=== PATIENT | female | born 2000 | race Caucasian/White ===

== ENCOUNTER 2018-08-24 14:18 | Emergency (ER) | payer OTHER ==
[2018-08-24] MEDS ORDERED: ONDANSETRON DISINTEGRATING 4 MG TAB PO ONE (14:42)
[2018-08-24] MEDS ORDERED: NS 1,000 ML IV ONE (15:03)
[2018-08-24] MEDS ORDERED: METOCLOPRAMIDE 10 MG/2 ML VIAL IVP ONE (15:03)
[2018-08-24] MEDS ORDERED: HYDROmorphONE/DILAUDID 2 MG/ML INJ IVP ONE (15:03)
--- NOTE | 2018-08-24 15:06 | EDPHY ---
H & P Stated Complaint: abd pain n/v states did drink etoh last night Time Seen by Provider: 08/24/18 14:58 HPI/ROS: CHIEF COMPLAINT: Abdominal pain, nausea vomiting HISTORY OF PRESENT ILLNESS: The patient is a 18-year-old female who comes to the emergency department complaining of abdominal pain, nausea and vomiting. She has vomited several times this morning. She complains of diffuse crampy pain. No diarrhea. No fever. She denies risk of . No vaginal bleeding or discharge. No urinary symptoms. She states that this happened to her once a year ago at home in [facility]. She states that she had negative testing and was discharged at the time but had to return to the ER several times for a return of vomiting symptoms when she got home. Eventually she was admitted and had an upper endoscopy and HIDA scan that were both negative. She states that they never did find the cause. She occasionally smokes marijuana but not heavily. She was drinking yesterday and states that that is similar to her previous episode. She states that she has learned during her previous episode that Zofran does not work for her. Severity: Moderate Modifying factors: None REVIEW OF SYSTEMS: Constitutional: denies: chills, fever, recent illness, recent injury EENTM: denies: blurred vision, double vision, nose congestion Respiratory: denies: cough, shortness of breath Cardiac: denies: chest pain, irregular heart rate, lightheadedness, palpitations Gastrointestinal/Abdominal: See HPI Genitourinary: denies: dysuria, frequency, hematuria, pain Musculoskeletal: denies: joint pain, muscle pain Skin: denies: lesions, rash, jaundice, bruising Neurological: denies: headache, numbness, paresthesia, tingling, dizziness, weakness Hematologic/Lymphatic: denies: blood clots, easy bleeding, easy bruising Immunologic/allergic: denies: HIV/AIDS, transplant 10 systems reviewed and negative except as noted EXAM: GENERAL: Uncomfortable, moderate distress HEAD: Atraumatic, normocephalic. EYES: Pupils equal round and reactive to light, extraocular movements intact, sclera anicteric, conjunctiva are normal. ENT: TMs normal, nares patent, oropharynx clear without exudates. Moist mucous membranes. NECK: Normal range of motion, supple without lymphadenopathy or JVD. LUNGS: Breath sounds clear to auscultation bilaterally and equal. No wheezes rales or rhonchi. HEART: Regular rate and rhythm without murmurs, rubs or gallops. ABDOMEN: Soft, nontender, normoactive bowel sounds. No guarding, no rebound. No masses appreciated. BACK: No CVA tenderness, no spinal tenderness, step-offs or deformities EXTREMITIES: Normal range of motion, no pitting or edema. No clubbing or cyanosis. NEUROLOGICAL: Cranial nerves II through XII grossly intact. Normal speech, normal gait. 5/5 strength, normal movement in all extremities, normal sensation , normal reflexes PSYCH: Normal mood, normal affect. SKIN: Warm, dry, normal turgor, no visible rashes or lesions. Source: Patient Exam Limitations: No limitations - Personal History LMP (Females 10-55): 15-21 Days Ago Current Tetanus Diphtheria and Acellular Pertussis (TDAP): Yes - Medical/Surgical History Hx Asthma: No Hx Chronic Respiratory Disease: No Hx Diabetes: No Hx Cardiac Disease: No Hx Renal Disease: No Hx Cirrhosis: No Hx Alcoholism: No Hx HIV/AIDS: No Hx Splenectomy or Spleen Trauma: No Other PMH: osteosarcoma - Family History Significant Family History: No pertinent family hx - Social History Smoking Status: Never smoked Alcohol Use: Occasionally Drug Use: Marijuana Constitutional: Initial Vital Signs Temperature (C) 36.7 C 08/24/18 14:33 Heart Rate 94 08/24/18 14:33 Respiratory Rate 20 08/24/18 14:33 Blood Pressure 125/83 H 08/24/18 14:33 O2 Sat (%) 100 08/24/18 14:33 O2 Delivery Mode Room Air Allergies/Adverse Reactions: No Known Allergies Allergy (Unverified 08/24/18 14:33) Home Medications: Medication Instructions Recorded Adderall 10 MG (*) 08/24/18 Metoclopramide [Reglan 10 mg tab 10 mg PO BID PRN 7 Days #10 tab 08/24/18 (RX)] Medical Decision Making ED Course/Re-evaluation: 4:00 p.m. The patient is sleeping comfortably. No longer vomiting. Abdominal exam is benign. 4:40 p.m. the patient's abdominal exam remains benign. She states that she is feeling much better and is eager to go home. She has not given us a urine sample. She declines doing so. She states that she has not had any urine symptoms. I will give her prescription for Reglan. We discussed indications for returning. Differential Diagnosis: Partial list of the Differential diagnosis considered include but were not limited to; gastritis, food poisoning, gastroparesis, alcohol use and although unlikely based on the history and physical exam, I also considered ulcer, appendicitis, kidney stone, appendicitis, ovarian cyst, . I discussed these differential diagnoses and the plan with the patient as well as the usual and expected course. The patient understands that the diagnosis is provisional and that in medicine we are not always correct and that further workup is often warranted. Usual and customary warnings were given. All of the patient's questions were answered. The patient was instructed to return to the emergency department should the symptoms at all worsen or return, otherwise to followup with the physician as we discussed. - Data Points Laboratory Results: Laboratory Results 08/24/18 15:11 08/24/18 15:11 08/24/18 08/24/18 08/24/18 15:11 15:11 15:11 WBC 12.34 10^3/uL H 10^3/uL (3.80-9.50) RBC 4.59 10^6/uL 10^6/uL (4.18-5.33) Hgb 15.6 g/dL g/dL (12.6-16.3) Hct 42.6 % % (38.0-47.0) MCV 92.8 fL fL (81.5-99.8) MCH 34.0 pg pg (27.9-34.1) MCHC 36.6 g/dL g/dL (32.4-36.7) RDW 12.5 % % (11.5-15.2) Plt Count 187 10^3/uL 10^3/uL (150-400) MPV 9.6 fL fL (8.7-11.7) Neut % (Auto) 87.8 % H % (39.3-74.2) Lymph % (Auto) 4.3 % L % (15.0-45.0) Rowan % (Auto) 7.1 % % (4.5-13.0) Eos % (Auto) 0.0 % L % (0.6-7.6) Baso % (Auto) 0.4 % % (0.3-1.7) Nucleat RBC Rel Count 0.0 % % (0.0-0.2) Absolute Neuts (auto) 10.83 10^3/uL H 10^3/uL (1.70-6.50) Absolute Lymphs (auto) 0.53 10^3/uL L 10^3/uL (1.00-3.00) Absolute Monos (auto) 0.88 10^3/uL H 10^3/uL (0.30-0.80) Absolute Eos (auto) 0.00 10^3/uL L 10^3/uL (0.03-0.40) Absolute Basos (auto) 0.05 10^3/uL 10^3/uL (0.02-0.10) Absolute Nucleated RBC 0.00 10^3/uL 10^3/uL (0-0.01) Immature Gran % 0.4 % % (0.0-1.1) Immature Gran # 0.05 10^3/uL 10^3/uL (0.00-0.10) RBC/WBC/PLT Morphology TNP Platelet Estimate TNP Sodium 139 mEq/L mEq/L (135-145) Potassium 3.7 mEq/L mEq/L (3.3-5.0) Chloride 102 mEq/L mEq/L (97-110) Carbon Dioxide 18 mEq/l L mEq/l (22-31) Anion Gap 19 mEq/L H mEq/L (6-14) BUN 11 mg/dL mg/dL (7-23) Creatinine 0.7 mg/dL mg/dL (0.6-1.0) Estimated GFR > 60 Glucose 96 mg/dL mg/dL (70-100) Calcium 10.2 mg/dL mg/dL (8.5-10.4) Total Bilirubin 0.8 mg/dL mg/dL (0.1-1.4) Conjugated Bilirubin 0.2 mg/dL mg/dL (0.0-0.5) Unconjugated Bilirubin 0.6 mg/dL mg/dL (0.0-1.1) AST 43 IU/L IU/L (14-46) ALT 43 IU/L IU/L (9-52) Alkaline Phosphatase 76 IU/L IU/L (38-126) Total Protein 8.0 g/dL g/dL (6.3-8.2) Albumin 4.8 g/dL g/dL (3.5-5.0) Lipase 66 IU/L IU/L (23-300) Beta HCG, Qual NEGATIVE Medications Given: Discontinued Medications Hydromorphone HCl (Dilaudid) 0.5 mg IVP EDNOW ONE Stop: 08/24/18 15:04 Last Admin: 08/24/18 15:33 Dose: 0.5 mg Sodium Chloride (Ns) 1,000 mls @ 0 mls/hr IV EDNOW ONE; Wide Open PRN Reason: Protocol Stop: 08/24/18 15:04 Last Admin: 08/24/18 15:26 Dose: 1,000 mls Metoclopramide HCl (Reglan Injection) 10 mg IVP EDNOW ONE Stop: 08/24/18 15:04 Last Admin: 08/24/18 15:26 Dose: 10 mg Metoclopramide HCl (Reglan) 10 mg PO EDNOW ONE Stop: 08/24/18 16:43 Last Admin: 08/24/18 16:57 Dose: 10 mg Ondansetron HCl (Zofran Odt) 4 mg PO EDNOW ONE Stop: 08/24/18 14:43 Last Admin: 08/24/18 14:44 Dose: 4 mg Departure - Departure Disposition: Home, Routine, Self-Care Clinical Impression: Vomiting Qualifiers: Vomiting type: unspecified Vomiting Intractability: unspecified Nausea presence : unspecified Qualified Code(s): R11.10 - Vomiting, unspecified Condition: Fair Instructions: Metoclopramide (By mouth), Acute Nausea and Vomiting (ED) Referrals: NONE *PRIMARY CARE P,. [Primary Care Provider] - As per Instructions Amanda Crocker MD [[facility] Primary Care Provider] - 2-3 days, if not improved Prescriptions: Metoclopramide [Reglan 10 mg tab (RX)] 10 mg PO BID PRN 7 Days #10 tab PRN Reason: *Nausea & Vomiting
[2018-08-24 15:27] LABS: PLATELET COUNT 187 10^3/uL (150-400)
[2018-08-24] MEDS ORDERED: METOCLOPRAMIDE 10 MG TAB PO ONE (16:42)
[2018-08-24 16:53] VITALS: BP 92/61
== END 2018-08-24 17:11 | disposition home or self-care (01) ==
DX: R11.10 Vomiting, unspecified (principal); R10.9 Unspecified abdominal pain; E86.9 Volume depletion, unspecified
CPT/HCPCS: 96374; J1170; J2765

== ENCOUNTER 2018-08-25 08:23 | Emergency (ER) | payer OTHER ==
[2018-08-25] MEDS ORDERED: PROMETHAZINE HCL 25 MG/ML INJ IVP ONE (08:40)
[2018-08-25] MEDS ORDERED: NS 1,000 ML IV ONE ×2 (08:40)
[2018-08-25] MEDS ORDERED: PANTOPRAZOLE SODIUM 40 MG VIAL IVP ONE (09:03)
[2018-08-25] MEDS ORDERED: DICYCLOMINE 10 MG CAP PO ONE (09:08)
[2018-08-25] MEDS ORDERED: fentaNYL 100 MCG/2 ML INJ IVP ONE (09:08)
--- NOTE | 2018-08-25 09:12 | EDPHY ---
General Time Seen by Provider: 08/25/18 09:09 Narrative: CHIEF COMPLAINT: Abdominal pain, nausea vomiting HISTORY OF PRESENT ILLNESS: Patient returns to emergency department by private vehicle with complaints of abdominal pain, nausea vomiting. Symptoms started 2 days ago. She was evaluated here for this. She was treated with IV pain medication and nausea medication. Discharged home with Reglan. She was feeling well until last night around midnight. She states she tried eat some soup at that time in her symptoms return. She describes generalized abdominal pain. It is constant duration. Moderate to severe. Worse with palpation, movement or intake by mouth. She reports asw-[id number]-count vomiting episodes. No bloody emesis. No constipation diarrhea. No fever. No chest pain or shortness of breath. No alleviating factors. She has tried the Reglan that she was prescribed without improvement. No other associated complaints or modifying factors REVIEW OF SYSTEMS: 10 systems were reviewed and negative with the exception of the elements mentioned in the history of present illness. PCP: None. SPECIALISTS: Pending outpatient referral PAST MEDICAL HISTORY: Osteosarcoma remotely PAST SURGICAL HISTORY: Left tibia SOCIAL HISTORY: Nonsmoker. Occasional alcohol use. Denies marijuana use. [employer] student. Originally from [place] FAMILY HISTORY: Noncontributory EXAMINATION: General Appearance: Alert, no distress. Nontoxic. Conversing in full sentences. Head: normocephalic, atraumatic Eyes: Pupils equal and round, no conjunctival pallor or injection ENT, Mouth: Mucous membranes slightly dry. Airway widely patent Neck: Normal inspection, supple, non-tender Respiratory: Lungs are clear to auscultation Cardiovascular: Regular rate and rhythm. No murmur. Gastrointestinal: Abdomen is soft and nondistended. Minimal tenderness in the epigastrium and generalized. Bowel sounds present all 4 quadrants. No palpable masses. No rigidity. No guarding. No CVA tenderness. No tympany. Neurological: A&O, nonfocal, normal gait Skin: Warm and dry, no rash. Multiple tattoos. No petechiae or purpura Extremities: Nontender, no pedal edema Psychiatric: Mood and affect normal DIFFERENTIAL DIAGNOSES: Including but not limited to gastritis, peptic ulcer disease, cyclical vomiting , cholecystitis, cholelithiasis, colitis, pancreatitis, appendicitis MDM: 9:10 a.m. Abdominal pain with nausea vomiting over the past 24-48 hours. Her abdominal exam is benign. She does have IV established with 2 L infusing. I will review her visit from yesterday. Her vital signs are within normal limits. No previous abdominal surgeries. No pelvic complaints. 10:10 a.m. Laboratory studies are unremarkable. Patient re-evaluated. She is feeling significantly better p.o. Still nauseated but no abdominal pain. I have ordered a GI cocktail and we will try ice chips. 10:45 a.m. Patient re-evaluated. She is feeling much better but is requesting IV Reglan. She has tolerated this past. I do feel it is reasonable. After this we will p.o. Trial her 11:10 a.m. Patient re-evaluated. She has tolerated p.o. Intake without any vomiting. Nausea is decreased. She has no abdominal pain. I did offer admission hospital she has declined. Vital signs within normal limits. We discussed rest , clear liquids, increase fluid intake, nausea medications. We discussed ED precautions for any return of her pain, intolerance of liquids, worsening nausea , fever, chest pain or shortness of breath. I have answered all her questions. She is comfortable going home, and I do feel she is stable for discharge home. SUPERVISION: Patient was independently examined, but I discussed the case with my secondary supervising physician Dr. Alejandra CONSULTATION: None - History Smoking Status: Never smoked - Objective Vital Signs: Initial Vital Signs Temperature (C) 97.9 F 08/25/18 08:28 Heart Rate 90 08/25/18 08:28 Respiratory Rate 18 08/25/18 08:28 Blood Pressure 119/89 H 08/25/18 08:28 O2 Sat (%) 96 08/25/18 08:28 O2 Delivery Mode Room Air Allergies/Adverse Reactions: No Known Allergies Allergy (Unverified 08/24/18 14:33) Home Medications: Medication Instructions Recorded Adderall 10 MG (*) 08/24/18 Metoclopramide [Reglan 10 mg tab 10 mg PO BID PRN 7 Days #10 tab 08/24/18 (RX)] LORazepam [Ativan] 1 mg PO Q8 PRN #5 tablet 08/25/18 Promethazine HCl [Phenergan 25mg 25 mg PO Q8 PRN #12 tab 08/25/18 (*)] Sucralfate [Carafate Oral Liquid 10 ml PO QID PRN #240 ml 08/25/18 100 mg/ml] Laboratory Results: Laboratory Results 08/25/18 08:40 08/25/18 08:40 Medications Given: Discontinued Medications Al Hydroxide/Mg Hydroxide (Maalox Susp) 30 ml PO ONCE ONE Stop: 08/25/18 10:14 Last Admin: 08/25/18 10:18 Dose: 30 ml Dicyclomine HCl (Bentyl) 20 mg PO EDNOW ONE Stop: 08/25/18 09:09 Last Admin: 08/25/18 09:20 Dose: 20 mg Diphenhydramine HCl (Benadryl Injection) 25 mg IVP EDNOW ONE Stop: 08/25/18 09:09 Last Admin: 08/25/18 09:20 Dose: 25 mg Fentanyl (Sublimaze) 100 mcg IVP EDNOW ONE Stop: 08/25/18 09:09 Last Admin: 08/25/18 09:19 Dose: 100 mcg Hyoscyamine Sulfate (Levsin, Hyomax-Sl) 0.25 mg PO ONCE ONE Stop: 08/25/18 10:14 Last Admin: 08/25/18 10:18 Dose: 0.25 mg Sodium Chloride (Ns) 1,000 mls @ 0 mls/hr IV EDNOW ONE; Wide Open PRN Reason: Protocol Stop: 08/25/18 08:41 Last Admin: 08/25/18 08:52 Dose: 1,000 mls Sodium Chloride (Ns) 1,000 mls @ 0 mls/hr IV EDNOW ONE; Wide Open PRN Reason: Protocol Stop: 08/25/18 08:41 Last Admin: 08/25/18 08:52 Dose: 1,000 mls Lidocaine (Lidocaine 2% Viscous) 15 ml PO ONCE ONE Stop: 08/25/18 10:14 Last Admin: 08/25/18 10:18 Dose: 15 ml Metoclopramide HCl (Reglan Injection) 10 mg IVP EDNOW ONE Stop: 08/25/18 10:48 Last Admin: 08/25/18 10:56 Dose: 10 mg Pantoprazole Sodium (Protonix) 40 mg IVP EDNOW ONE Stop: 08/25/18 09:04 Last Admin: 08/25/18 09:28 Dose: 40 mg Promethazine HCl (Phenergan) 12.5 mg IVP EDNOW ONE Stop: 08/25/18 08:41 Last Admin: 08/25/18 08:51 Dose: 12.5 mg Departure - Departure Disposition: Home, Routine, Self-Care Clinical Impression: Nausea & vomiting Qualifiers: Vomiting type: unspecified Vomiting Intractability: non-intractable Qualified Code(s): R11.2 - Nausea with vomiting, unspecified Gastritis Qualifiers: Gastritis type: unspecified gastritis Chronicity: acute Gastritis bleeding: without bleeding Qualified Code(s): K29.00 - Acute gastritis without bleeding Cyclical vomiting Qualifiers: Vomiting Intractability: non-intractable Nausea presence: with nausea Qualified Code(s): G43.A0 - Cyclical vomiting, not intractable Condition: Good Instructions: Gastritis (ED), Acute Nausea and Vomiting (ED) Additional Instructions: 1. Carafate as prescribed as needed 2. Pepcid [id number], 20 mg twice daily for 10-14 days 3. Promethazine 25 mg as prescribed as needed 4. Avoid all alcohol tobacco or illicit substance use 5. Follow up with GI physician as provided for outpatient care 6. Clear liquids today, advancing slowly as tolerated 7. ED precautions as discussed for any return of your abdominal pain, fever, intolerance of intake Referrals: Pedro Brady MD [Medical Doctor] - As per Instructions Physician,Emergency DeptMD [Medical Doctor] - As per Instructions (For return of abdominal pain, intolerance of liquids, fever intractable vomiting) Stand Alone Forms: School Excuse Prescriptions: LORazepam [Ativan] 1 mg PO Q8 PRN #5 tablet PRN Reason: intractable nausea/vomiting Promethazine HCl [Phenergan 25mg (*)] 25 mg PO Q8 PRN #12 tab PRN Reason: Nausea/Vomiting, Use 1st Sucralfate [Carafate Oral Liquid 100 mg/ml] 10 ml PO QID PRN #240 ml PRN Reason: abdominal pain
[2018-08-25 09:28] LABS: PLATELET COUNT 174 10^3/uL (150-400)
[2018-08-25] MEDS ORDERED: LIDOCAINE 2% VISCOUS 15 ML UDCUP PO ONE (10:13)
[2018-08-25] MEDS ORDERED: MAG HYDROX/AL HYDROX/SIMETH 30 ML UDCUP PO ONE (10:13)
[2018-08-25] MEDS ORDERED: HYOSCYAMINE SULFATE 0.125 MG TAB PO ONE (10:13)
[2018-08-25] MEDS ORDERED: METOCLOPRAMIDE 10 MG/2 ML VIAL IVP ONE (10:47)
[2018-08-25 10:57] VITALS: BP 132/88
== END 2018-08-25 11:29 | disposition home or self-care (01) ==
DX: G43.A0 Cyclical vomiting, in migraine, not intractable (principal); K29.00 Acute gastritis without bleeding; E86.9 Volume depletion, unspecified; R10.9 Unspecified abdominal pain
CPT/HCPCS: 96374; J1200; J2550; J2765; J3010

== ENCOUNTER 2018-10-06 12:09 | Emergency (ER) | payer OTHER ==
[2018-10-06] MEDS ORDERED: ONDANSETRON DISINTEGRATING 4 MG TAB PO ONE (12:35)
[2018-10-06] MEDS ORDERED: NS 1,000 ML IV ONE ×3 (13:19→17:46)
[2018-10-06] MEDS ORDERED: HALOPERIDOL LACT 5 MG/ML INJ IVP ONE ×2 (13:30→17:40)
[2018-10-06] MEDS ORDERED: KETOROLAC 30 MG/1 ML SDV IVP ONE (13:30)
[2018-10-06] MEDS ORDERED: METOCLOPRAMIDE 10 MG/2 ML VIAL IVP ONE (13:30)
[2018-10-06] MEDS ORDERED: LIDOCAINE 2% VISCOUS 15 ML UDCUP PO ONE (13:31)
[2018-10-06] MEDS ORDERED: MAG HYDROX/AL HYDROX/SIMETH 30 ML UDCUP PO ONE (13:31)
[2018-10-06] MEDS ORDERED: HYOSCYAMINE SULFATE 0.125 MG TAB PO ONE (13:31)
--- NOTE | 2018-10-06 13:35 | EDPHY ---
H & P Stated Complaint: pt describes etoh last night with n/v today Time Seen by Provider: 10/06/18 13:22 HPI/ROS: CHIEF COMPLAINT: Vomiting HISTORY OF PRESENT ILLNESS: The patient is a 18-year-old female who comes to the emergency department complaining nausea and vomiting several times overnight and this morning. She states that she drink heavily last night. She was here in July for something similar and she reports that that was after drinking heavily as well. She thinks that she may be allergic to alcohol. She has not had a fever. No diarrhea. No abdominal pain. She denies risk of . No urinary symptoms. No chest pain or shortness of breath. She does not take any medications at home. During her previous visit her symptoms resolved with Reglan and she states that a GI cocktail helped as well. She does not smoke marijuana. She does not have diabetes. Severity: Severe Modifying factors: None REVIEW OF SYSTEMS: Constitutional: denies: chills, fever, recent illness, recent injury EENTM: denies: blurred vision, double vision, nose congestion Respiratory: denies: cough, shortness of breath Cardiac: denies: chest pain, irregular heart rate, lightheadedness, palpitations Gastrointestinal/Abdominal: See HPI Genitourinary: denies: dysuria, frequency, hematuria, pain Musculoskeletal: denies: joint pain, muscle pain Skin: denies: lesions, rash, jaundice, bruising Neurological: denies: headache, numbness, paresthesia, tingling, dizziness, weakness Hematologic/Lymphatic: denies: blood clots, easy bleeding, easy bruising Immunologic/allergic: denies: HIV/AIDS, transplant 10 systems reviewed and negative except as noted EXAM: GENERAL: Slightly pale, stable HEAD: Atraumatic, normocephalic. EYES: Pupils equal round and reactive to light, extraocular movements intact, sclera anicteric, conjunctiva are normal. ENT: TMs normal, nares patent, oropharynx clear without exudates. Moist mucous membranes. NECK: Normal range of motion, supple without lymphadenopathy or JVD. LUNGS: Breath sounds clear to auscultation bilaterally and equal. No wheezes rales or rhonchi. HEART: Regular rate and rhythm without murmurs, rubs or gallops. ABDOMEN: Soft, nontender, normoactive bowel sounds. No guarding, no rebound. No masses appreciated. BACK: No CVA tenderness, no spinal tenderness, step-offs or deformities EXTREMITIES: Normal range of motion, no pitting or edema. No clubbing or cyanosis. NEUROLOGICAL: Cranial nerves II through XII grossly intact. Normal speech, normal gait. 5/5 strength, normal movement in all extremities, normal sensation , normal reflexes PSYCH: Normal mood, normal affect. SKIN: Warm, dry, normal turgor, no visible rashes or lesions. Source: Patient Exam Limitations: No limitations - Personal History LMP (Females 10-55): 22-28 Days Ago Current Tetanus Diphtheria and Acellular Pertussis (TDAP): Yes - Medical/Surgical History Hx Asthma: No Hx Chronic Respiratory Disease: No Hx Diabetes: No Hx Cardiac Disease: No Hx Renal Disease: No Hx Cirrhosis: No Hx Alcoholism: No Hx HIV/AIDS: No Hx Splenectomy or Spleen Trauma: No Other PMH: add, osteosarcoma - Family History Significant Family History: No pertinent family hx - Social History Smoking Status: Never smoked Alcohol Use: Occasionally Drug Use: None Constitutional: Initial Vital Signs Temperature (C) 36.4 C 10/06/18 12:17 Heart Rate 107 H 10/06/18 12:17 Respiratory Rate 20 10/06/18 12:17 Blood Pressure 117/80 10/06/18 12:17 O2 Sat (%) 100 10/06/18 12:17 O2 Delivery Mode Room Air Allergies/Adverse Reactions: No Known Allergies Allergy (Verified 10/06/18 12:17) Home Medications: Medication Instructions Recorded Adderall 10 MG (*) 08/24/18 Metoclopramide [Reglan 10 mg tab 10 mg PO BID PRN 7 Days #10 tab 08/24/18 (RX)] LORazepam [Ativan] 1 mg PO Q8 PRN #5 tablet 08/25/18 Promethazine HCl [Phenergan 25mg 25 mg PO Q8 PRN #12 tab 08/25/18 (*)] Sucralfate [Carafate Oral Liquid 10 ml PO QID PRN #240 ml 08/25/18 100 mg/ml] Dicyclomine [Bentyl 20 MG (*)] 20 mg PO QID #20 tab 10/06/18 Promethazine HCl [Phenergan 25mg 25 mg IL Q4-6PRN PRN #10 suppr 10/06/18 supp (RX)] Medical Decision Making ED Course/Re-evaluation: Patient's abdominal exam is benign. She complains primarily of epigastric pain. Will obtain lab work, hydrate and treat with antiemetics and GI cocktail. 6:50 p.m. the patient feels much better although still slightly nauseous. She states that pain medicine works well for her. I will give her Bentyl. We discussed our policy against giving narcotics. She understands. She states that she is ready to go home. I will give her prescription for Phenergan as well as Bentyl. She is happy with this plan. She is tolerating p.o. Here. We discussed indications for returning. Her abdominal exam remains benign. Differential Diagnosis: Partial list of the Differential diagnosis considered include but were not limited to; nausea, vomiting, gastritis, dehydration, allergic reaction and although unlikely based on the history and physical exam, I also considered ileus, gastroparesis, substance abuse, appendicitis, biliary disease. I discussed these differential diagnoses and the plan with the patient as well as the usual and expected course. The patient understands that the diagnosis is provisional and that in medicine we are not always correct and that further workup is often warranted. Usual and customary warnings were given. All of the patient's questions were answered. The patient was instructed to return to the emergency department should the symptoms at all worsen or return, otherwise to followup with the physician as we discussed. - Data Points Laboratory Results: Laboratory Results 10/06/18 13:25 10/06/18 13:25 10/06/18 10/06/18 10/06/18 13:25 13:25 13:25 WBC 9.77 10^3/uL H 10^3/uL (3.80-9.50) RBC 4.91 10^6/uL 10^6/uL (4.18-5.33) Hgb 16.5 g/dL H g/dL (12.6-16.3) Hct 45.8 % % (38.0-47.0) MCV 93.3 fL fL (81.5-99.8) MCH 33.6 pg pg (27.9-34.1) MCHC 36.0 g/dL g/dL (32.4-36.7) RDW 11.6 % % (11.5-15.2) Plt Count 305 10^3/uL 10^3/uL (150-400) MPV 9.3 fL fL (8.7-11.7) Neut % (Auto) 79.8 % H % (39.3-74.2) Lymph % (Auto) 16.2 % % (15.0-45.0) [place] % (Auto) 2.7 % L % (4.5-13.0) Eos % (Auto) 0.0 % L % (0.6-7.6) Baso % (Auto) 0.4 % % (0.3-1.7) Nucleat RBC Rel Count 0.0 % % (0.0-0.2) Absolute Neuts (auto) 7.80 10^3/uL H 10^3/uL (1.70-6.50) Absolute Lymphs (auto) 1.58 10^3/uL 10^3/uL (1.00-3.00) Absolute Monos (auto) 0.26 10^3/uL L 10^3/uL (0.30-0.80) Absolute Eos (auto) 0.00 10^3/uL L 10^3/uL (0.03-0.40) Absolute Basos (auto) 0.04 10^3/uL 10^3/uL (0.02-0.10) Absolute Nucleated RBC 0.00 10^3/uL 10^3/uL (0-0.01) Immature Gran % 0.9 % % (0.0-1.1) Immature Gran # 0.09 10^3/uL 10^3/uL (0.00-0.10) Sodium 142 mEq/L mEq/L (135-145) Potassium 4.3 mEq/L mEq/L (3.5-5.2) Chloride 106 mEq/L mEq/L (97-110) Carbon Dioxide 21 mEq/l L mEq/l (22-31) Anion Gap 15 mEq/L H mEq/L (6-14) BUN 9 mg/dL mg/dL (7-23) Creatinine 0.7 mg/dL mg/dL (0.6-1.0) Estimated GFR > 60 Glucose 131 mg/dL H mg/dL (70-100) Calcium 9.8 mg/dL mg/dL (8.5-10.4) Total Bilirubin 0.8 mg/dL mg/dL (0.1-1.4) Conjugated Bilirubin 0.2 mg/dL mg/dL (0.0-0.5) Unconjugated Bilirubin 0.6 mg/dL mg/dL (0.0-1.1) AST 33 IU/L IU/L (14-46) ALT 28 IU/L IU/L (9-52) Alkaline Phosphatase 82 IU/L IU/L (38-126) Total Protein 8.0 g/dL g/dL (6.3-8.2) Albumin 4.7 g/dL g/dL (3.5-5.0) Lipase 90 IU/L IU/L (23-300) Beta HCG, Qual NEGATIVE Medications Given: Discontinued Medications Al Hydroxide/Mg Hydroxide (Maalox Susp) 30 ml PO ONCE ONE Stop: 10/06/18 13:32 Last Admin: 10/06/18 13:40 Dose: 30 ml Dicyclomine HCl (Bentyl) 20 mg PO EDNOW ONE Stop: 10/06/18 18:50 Last Admin: 10/06/18 19:12 Dose: 20 mg Diphenhydramine HCl (Benadryl Injection) 50 mg IVP EDNOW ONE Stop: 10/06/18 17:41 Last Admin: 10/06/18 17:48 Dose: 50 mg Haloperidol Lactate (Haldol Injection) 2.5 mg IVP EDNOW ONE Stop: 10/06/18 13:31 Last Admin: 10/06/18 13:41 Dose: 2.5 mg Haloperidol Lactate (Haldol Injection) 5 mg IVP EDNOW ONE Stop: 10/06/18 17:41 Last Admin: 10/06/18 17:46 Dose: 5 mg Hyoscyamine Sulfate (Levsin, Hyomax-Sl) 0.25 mg PO ONCE ONE Stop: 10/06/18 13:32 Last Admin: 10/06/18 13:42 Dose: 0.25 mg Sodium Chloride (Ns) 1,000 mls @ 0 mls/hr IV EDNOW ONE; Wide Open PRN Reason: Protocol Stop: 10/06/18 13:20 Last Admin: 10/06/18 13:29 Dose: 1,000 mls Sodium Chloride (Ns) 1,000 mls @ 0 mls/hr IV EDNOW ONE; Wide Open PRN Reason: Protocol Stop: 10/06/18 13:31 Last Admin: 10/06/18 13:44 Dose: 1,000 mls Sodium Chloride (Ns) 1,000 mls @ 0 mls/hr IV ONCE ONE; Wide Open PRN Reason: Protocol Stop: 10/06/18 17:47 Last Admin: 10/06/18 17:48 Dose: 1,000 mls Ketorolac Tromethamine (Toradol) 15 mg IVP EDNOW ONE Stop: 10/06/18 13:31 Last Admin: 10/06/18 13:40 Dose: 15 mg Lidocaine (Lidocaine 2% Viscous) 15 ml PO ONCE ONE Stop: 10/06/18 13:32 Last Admin: 10/06/18 13:40 Dose: 15 ml Metoclopramide HCl (Reglan Injection) 10 mg IVP EDNOW ONE Stop: 10/06/18 13:31 Last Admin: 10/06/18 13:40 Dose: 10 mg Ondansetron HCl (Zofran Odt) 4 mg PO EDNOW ONE Stop: 10/06/18 12:36 Last Admin: 10/06/18 12:38 Dose: 4 mg Promethazine HCl (Phenergan 25 Mg Prepack #4) 1 btl TAKEHOME EDNOW ONE Stop: 10/06/18 18:54 Last Admin: 10/06/18 19:14 Dose: 1 btl Departure - Departure Disposition: Home, Routine, Self-Care Clinical Impression: Nausea & vomiting Qualifiers: Vomiting type: unspecified Vomiting Intractability: non-intractable Qualified Code(s): R11.2 - Nausea with vomiting, unspecified Condition: Fair Instructions: Prochlorperazine (By mouth), Acute Nausea and Vomiting (ED) Referrals: NONE *PRIMARY CARE P,. [Primary Care Provider] - As per Instructions Angelo Chavarria MD [Medical Doctor] - As per Instructions Prescriptions: Dicyclomine [Bentyl 20 MG (*)] 20 mg PO QID #20 tab Promethazine HCl [Phenergan 25mg supp (RX)] 25 mg IL Q4-6PRN PRN #10 suppr PRN Reason: Headache
[2018-10-06 13:46] LABS: PLATELET COUNT 305 10^3/uL (150-400)
[2018-10-06 18:17] VITALS: BP 130/89
[2018-10-06] MEDS ORDERED: DICYCLOMINE 10 MG CAP PO ONE (18:49)
[2018-10-06] MEDS ORDERED: PROMETHAZINE 25 MG PREPACK #4 BTL TAKEHOME ONE (18:53)
== END 2018-10-06 19:23 | disposition home or self-care (01) ==
DX: R11.2 Nausea with vomiting, unspecified (principal); E86.9 Volume depletion, unspecified
CPT/HCPCS: 96374; J1200; J1630; J1885; J2765